=== PATIENT | male | born 1965 | race Caucasian/White ===

== ENCOUNTER → 2017-04-01 | Outpatient (CLI) | payer BC ==
[2017-04-01 13:20] LABS: BASO % 1.1 %; BASO ABS # 0.05 K/uL (0-0.2); COMPLETE YES; EOS % 4.8 %; HEMATOCRIT 42.6 % (42-52); IG% 0.2 %; LYMPH % 33.8 %; LYMPH ABS # 1.56 K/uL (1.2-3.4); MEAN CELL VOLUME 95.9 fL (80-100); MEAN CORPUSCULAR HEMOGLOBIN 33.8 pg (25-34); MEAN CORPUSCULAR HGB CONC 35.2 g/dl (32-36); MEAN PLATELET VOLUME 10.3 fL (7.4-10.4); MONO % 12.6 %; NEUT % 47.5 %; PLATELET COUNT 183 K/uL (130-400); RED BLOOD COUNT 4.44 M/uL (4.7-6.1); WHITE BLOOD COUNT 4.61 K/uL (4.8-10.8)
[2017-04-01 14:49] LABS: ALT/SGPT 39 U/L (12-78); AST/SGOT 21 U/L (15-37); BLOOD UREA NITROGEN 17 mg/dl (7-18); BUN/CREATININE RATIO 17.4 (10-20); CARBON DIOXIDE 30 mmol/L (21-32); CHLORIDE 107 mmol/L (98-107); CHOLESTEROL 126 mg/dl (0-200); GLUCOSE 116 mg/dl (70-99); POTASSIUM 3.9 mmol/L (3.5-5.1); SODIUM 140 mmol/L (136-145)
[2017-04-01 14:57] LABS: ALB/GLOB RATIO 1.3 (0.9-2); ALKALINE PHOSPHATASE 57 U/L (45-117); CHOLESTEROL/HDL RATIO 3.3; HDL CHOLESTEROL 38 mg/dl; LDL CHOLESTEROL CALCULATED 66 mg/dl; THYROID STIMULATING HORMONE 0.452 uIu/ml (0.300-4.500); TRIGLYCERIDES 110 mg/dl (0-150); VERY LOW DENSITY LIPOPROT CALC 22 mg/dl
== END | disposition home or self-care (01) ==
LOC: C.LABMFLN 07:52
PROVIDERS: ATTEND Family Medicine
DX: E78.5 Hyperlipidemia, unspecified (principal); E03.9 Hypothyroidism, unspecified

== ENCOUNTER 2024-06-01 06:20 | Observation (INO) ==
--- NOTE | 2024-05-19 09:02 | Anesthesiology Consultation ---
Date of Service May 19, 2024 Assessment & Plan (1) Encounter for pre-operative examination: - Check BSG AM DOS - Infectious disease screening: Per assessment on 05/19/24: No known recent infectious disease contacts or current infectious disease symptoms. - PCP addendum (05/13/24): "Preop testing reviewed. EKG showed NSR. Chest xray showed mildly enlarged heart with no acute abnormalities. UA showed no infection. CBC, CMP, INR, unremarkable. A1c was at 7.0. TSH WNL. Based on patients past medical history, functional capacity 4METs, and RCRI 0, patient is medically optimized for surgery. Pt will not need any additional work up." - PCP note (05/13/24): "Low risk.. Patient is cleared for scheduled surgery" Chart Review Chart Review: Acceptable Risk for Surgery and Patient NOT seen in Pre Admission Testing History Surgery Operation Date: 06/01/24 07:45 Proposed Procedures p C5-C6 Anterior Cervical Discectomy and Fusion with Spinal Cord Monitoring - William Baker, Height/Weight Height: 5 ft 9 in Weight: 97.976 kg Allergies Allergy/AdvReac Type Severity Reaction Status Date / Time No Known Allergies Allergy Verified 05/19/24 08:05 Medications Home Medications Medication Instructions Recorded Confirmed Last Taken levothyroxine 137 mcg tablet 137 mcg PO DAILY #90 tabs 09/29/23 05/19/24 Unknown simvastatin 20 mg tablet 20 mg PO DAILY #90 tabs 02/24/24 05/19/24 Unknown gabapentin 300 mg capsule 300 mg PO HS 05/10/24 05/19/24 Unknown metformin 500 mg tablet 500 mg PO DAILY 05/10/24 05/19/24 Unknown Past Medical History Medical History Diabetes History of COVID-19 (11/2022) Symptoms resolved Hyperlipidemia Hypothyroidism Thoracic compression fracture Thoracic spine MRI 01/2022: Multiple chronic mild compression fractures within the thoracic spine. No acute thoracic spine fracture. No retropulsion. Past Family History Family History Family/Other No problems noted. Father COPD (chronic obstructive pulmonary disease) Coronary heart disease Mother Hyperlipemia Rheumatoid arthritis Other Colonic polyp Colorectal cancer Past Surgical History Surgical History H/O arthroscopic knee surgery H/O colonoscopy 03/2018 Repeat 5 years H/O neck surgery H/O shoulder surgery x3 History of appendectomy History of carpal tunnel surgery bilat History of esophagogastroduodenoscopy (EGD) 11/08/2018 Social History Smoking Status: Never smoker Do You Dip or Chew Tobacco: Yes (advised) Hx Alcohol Use: No Hx Substance Use: No substance use type: does not use Lab Results Anesthesia Preop Results Results Anesthesia Widget: WBC 4.89 K/ul (4.8-10.8) 05/12/24 Hgb 14.0 g/dl (14.0-18.0) 05/12/24 Hct 39.9 % (42.0-52.0) L 05/12/24 Plt 191 K/uL (130-400) 05/12/24 Na 139 mmol/L (136-145) 05/12/24 K 3.9 mmol/L (3.5-5.1) 05/12/24 Cl 104 mmol/L (98-107) 05/12/24 CO2 29 mmol/L (21-32) 05/12/24 BUN 17 mg/dl (6-23) 05/12/24 Creat 0.96 mg/dl (0.6-1.4) 05/12/24 Glucose Level 141 mg/dl (70-99(Fasting)) H 05/12/24 PT 10.7 Seconds (9.0-12.0) 05/12/24 PTT 24 Seconds (21-31) 05/12/24 INR 1.0 (0.9-1.1) 05/12/24 TSH 0.668 uIu/ml (0.300-4.500) 05/12/24 HA1c 7.0 % (4.5-5.6) H 05/12/24 Urine Color Yellow 05/12/24 Urine Appearance Clear (Clear) 05/12/24 Urine pH 5.5 (4.5-7.5) 05/12/24 Urine Specific [place] 1.024 (1.000-1.030) 05/12/24 Urine Protein Negative (Negative) 05/12/24 Urine Glucose (UA) Negative (Negative) 05/12/24 Urine Ketones Trace (Negative) H 05/12/24 Urine Blood Negative (Negative) 05/12/24 Urine Nitrite Negative (Negative) 05/12/24 Urine Bilirubin Negative (Negative) 05/12/24 Urine Urobilinogen Negative (Negative) 05/12/24 Urine Leukocyte Esterase Negative (Negative) 05/12/24 Blood Type A Negative 05/12/24 Antibody Screen NEGATIVE 05/12/24 Testing Electrocardiogram Date: 05/12/24 NSR with sinus arrhythmia at 66bpm. LAD. Chest X-Ray Date: 05/12/24 FINDINGS: Cardiac silhouette is mildly enlarged. The lungs are clear. No pneumothorax or pleural effusion. Bones appear grossly intact. IMPRESSION: No acute process. Echocardiogram Date: 05/17/24 EF 60-65%. No RWMA. Mild cLVH. Mild MR. Normal estimated RVSP.
[2024-06-01] MEDS: GABAPENTIN 600 MG DOSE PO SCH (06:55)
[2024-06-01] MEDS: ACETAMINOPHEN 500 MG TAB PO SCH (06:55)
[2024-06-01] MEDS: CeleBREX 200 MG CAP PO SCH (06:55)
[2024-06-01] MEDS: LR 15ML/HR IV SCH (06:56)
[2024-06-01] MEDS: LR 60ML/HR IV SCH (06:56)
[2024-06-01] MEDS ORDERED: ONDANSETRON INJ 2 MG/ML 2 ML VIAL ONE (07:02)
[2024-06-01] MEDS ORDERED: MIDAZOLAM HCL 1 MG/ML 2ML VIAL ONE (07:02)
[2024-06-01] MEDS ORDERED: fentaNYL citrate PF 100 MCG/2 ML VIAL ONE ×2 (07:02→08:16)
[2024-06-01] MEDS ORDERED: PROPOFOL IV EMULSION 10 MG/ML 20 ML VIAL IV ONE (07:02)
[2024-06-01] MEDS ORDERED: LIDOCAINE 2% 2 ML VIAL/AMP(20MG/ML) INFIL ONE (07:02)
[2024-06-01] MEDS ORDERED: DEXAMETHASONE SOD INJ 4 MG/ML VIAL ONE (07:02)
[2024-06-01] MEDS ORDERED: ROCURONIUM BROMIDE 10 MG/ML 5 ML VIAL IV ONE (07:02)
[2024-06-01] MEDS ORDERED: GLYCOPYRROLATE 0.2 MG/ML VIAL ONE (07:02)
[2024-06-01] MEDS ORDERED: SUGAMMADEX SODIUM 200 MG/2 ML VIAL IV ONE (07:08)
[2024-06-01] MEDS ORDERED: ePHEDrine sulfate 50 MG/ML AMP IV PRN (07:26)
[2024-06-01] MEDS ORDERED: ATROPINE SULFATE 0.1 MG/ML 10ML SYR IV PRN (07:26)
[2024-06-01] MEDS ORDERED: ONDANSETRON INJ 2 MG/ML 2 ML VIAL IV PRN ×2 (07:26→10:42)
--- NOTE | 2024-06-01 07:40 | History & Physical Bridge Note ---
Date of Service June 01, 2024 History & Physical Bridge Note I have examined the patient, reviewed the History & Physical and in the interval since the performance of the History & Physical I have noted the following changes of clinical significance: no changes noted
--- NOTE | 2024-06-01 07:41 | History & Physical Report ---
Date of Service June 01, 2024 Assessment & Plan (1) Herniation of cervical intervertebral disc with radiculopathy: Plan: C5-C6 anterior cervical discectomy and fusion History of Present Illness Chief Complaint: Neck and arm pain Primary Care Provider: Lalitha Bojorquez DO This is a 51-year-old male who presents with chronic persistent neck and arm pain after failing course of nonoperative care is here for surgical intervention. Allergies Allergy/AdvReac Type Severity Reaction Status Date / Time No Known Allergies Allergy Verified 06/01/24 06:32 Home Medications Medication Instructions Recorded Confirmed Type levothyroxine 137 mcg tablet 137 mcg PO DAILY #90 tabs 09/29/23 06/01/24 Rx simvastatin 20 mg tablet 20 mg PO DAILY #90 tabs 02/24/24 06/01/24 Rx gabapentin 300 mg capsule 300 mg PO HS 05/10/24 06/01/24 History metformin 500 mg tablet 500 mg PO DAILY 05/10/24 06/01/24 History cholecalciferol (vitamin D3) 125 125 mcg PO DAILY 06/01/24 06/01/24 History mcg (5,000 unit) tablet (Vitamin D3) Past Med/Surg History Problem List (Updated 06/01/24 @ 07:41 by William Baker DO) Herniation of cervical intervertebral disc with radiculopathy Encounter for pre-operative examination Diabetes Thoracic radiculopathy Entered 2021 Hypothyroidism Hyperlipidemia Medical History Diabetes History of COVID-19 (11/2022) Symptoms resolved Hyperlipidemia Hypothyroidism Thoracic compression fracture Thoracic spine MRI 01/2022: Multiple chronic mild compression fractures within the thoracic spine. No acute thoracic spine fracture. No retropulsion. Surgical History H/O arthroscopic knee surgery H/O colonoscopy 03/2018 Repeat 5 years H/O neck surgery H/O shoulder surgery x3 History of appendectomy History of carpal tunnel surgery bilat History of esophagogastroduodenoscopy (EGD) 11/08/2018 Family History Family/Other No problems noted. Father COPD (chronic obstructive pulmonary disease) Coronary heart disease Mother Hyperlipemia Rheumatoid arthritis Other Colonic polyp Colorectal cancer Social History Smoking Status: Never smoker Tobacco Type: Smokeless Tobacco (Dip or Chew) Second Hand Exposure: No; Do You Dip or Chew Tobacco: Yes (advised); Tobacco Cessation Education Requested by Patient: No Hx Alcohol Use: No Hx Substance Use: No Preferred Language: Mongolian Communication Ability: Effective Visual Impairment: No Limitations Hearing Ability: Normal Kennel Helper Required: No Beliefs That Will Affect Care: None marital status: Current Living Situation: Spouse current occupational status: employed Other Information That Helps Us Care for You: No Feels Safe at Home: Yes Safety Concerns: Feels Safe At This Time Assistive Devices: Glasses Physical Exam Physical Exam: Patient is alert and oriented heart regular in rhythm Lungs clear Results & Data Results & Data Vital Signs (Past 12 Hours) Vital Signs Temp Pulse Resp BP Pulse Ox O2 Del Method 06/01/24 06:31 36.8 C 88 99 H 166/108 H 99 Room Air
[2024-06-01] MEDS: ceFAZolin 2000MG 2,000 MG/15 ML SYR IV SCH ×2 (07:48→14:14)
[2024-06-01] MEDS: FLOSEAL HEMOSTATIC MATRIX 10ML TOP ONE (08:44)
[2024-06-01] MEDS: ceFAZolin 330 MG/ML 1 GM VIAL ONE (08:47)
--- NOTE | 2024-06-01 08:57 | Operative Report ---
Post Operative Report Pre & Post Diagnosis Operation Date: 06/01/24 07:45 Pre-Op Diagnosis: Herniation of cervical intervertebral disc with radiculopathy Post-Op Diagnosis: Herniation of cervical intervertebral disc with radiculopathy I identified the patient and participated in the time-out.: Yes Procedure Operation Date: 06/01/24 07:45 Actual Procedures #1 anterior cervical discectomy with bilateral foraminotomies C5-C6. #2 anterior cervical arthrodesis C5-C6. #3 placement of Spira 8 mm cage filled with os design bone graft C5-C6. #4 application of K2 M plate and screws across the 5 C6. Surgeon William Baker, DO Armed [employer] Professional Roya Che Estimated Blood Loss 10 Findings Consistent with Post-Op Diagnosis Specimens None Indications This is a 51-year-old male that presents with above-mentioned diagnosis and failed course of nonoperative care is here for surgical intervention. Description of Procedure Patient was met with identified informed consent obtained. Patient was then taken to the operative suite underwent patient placed in a supine position on the [place] table with his head in the [employer] head inspector and adjuster. All bony promises well-padded eyes inspected to ensure no external pressure placed upon the. This point the anterior cervical spine was prepped and draped in a sterile fashion. The assistance of fluoroscopy identified the see 5 C6 disc space and a transverse incision was placed along the right anterior aspect of the cervical spine overlying this region. Blunt dissection with the assistance of bipolar electrocautery is then formed down to and exposing the anterior cervical spine at C5-C6. Self-retaining retractor was placed. A complete discectomy of C5-C6 was then performed up to the uncovertebral joints bilaterally. Harrison distracting pins utilized to assist in visualization. I removed all posterior annular fibers longitudinally with bilateral foraminotomies performed. Endplates burred to subcortical and bone and 8 mm spiral cage filled with os design bone graft tapped in position. Distracting apparatus was removed and a K2 M plate and screws applied with the assistance of fluoroscopy. The incision was then copiously irrigated explored to ensure no damage to surrounding structures or remaining bleeding. 10 round KARLY drain inserted. The incision was then closed with 2 Vicryl in the fascia and 4 Monocryl for final skin closure. Steri-Strips sterile dressing placed. Patient waken taken to PACU in stable condition. Please note spinal cord monitoring was utilized at the procedure no changes noted. Roya Che was present at the entire surgery involved the patient position complex portion of the surgery and final skin closure. I attest to the content of the Intraoperative Record and any orders documented therein. Any exceptions are noted below.
[2024-06-01] MEDS: HYDROmorphone INJ 2 MG/ML SYR/VIAL IV PRN (09:45)
--- NOTE | 2024-06-01 10:34 | Fluoroscopy Report ---
INTRAOPERATIVE RADIOGRAPHS CLINICAL HISTORY: Cervical spinal fusion. Fluoro time: 9 seconds Ka,r: 0.95 mGy FINDINGS: 2 spot fluoroscopic views of the cervical spine are presented. There has been discectomy at C5-C6 with anterior fusion at this level. The orthopedic hardware appears intact. An endotracheal tu be is in place. IMPRESSION: Intraoperative images from cervical spinal fusion surgery as above. Electronically signed by: Asad Cuba M.D. 06/01/2024 10:33 AM
[2024-06-01] MEDS ORDERED: METOCLOPRAMIDE HCL INJ 5 MG/ML 2 ML VIAL IV PRN (10:42)
[2024-06-01] MEDS ORDERED: LORazepam 0.5 MG in SYRINGE 0.25 ML IV PRN (10:42)
[2024-06-01] MEDS ORDERED: ONDANSETRON 4 MG OD TAB PO PRN (10:42)
[2024-06-01] MEDS ORDERED: diphenhydrAMINE Capsule 25 MG CAP PO PRN (10:42)
[2024-06-01] MEDS ORDERED: hydrOXYzine HCl 25 MG TAB PO PRN (10:42)
[2024-06-01] MEDS ORDERED: SOD PHOSPHATE/SOD BIPHOSPHATE ENEMA 132 ML BTL PR PRN (10:42)
[2024-06-01] MEDS ORDERED: DO NOT ADMINISTER PNEUMOCOCCAL VACCINE PRN (10:42)
[2024-06-01] MEDS ORDERED: dexAMETHasone 8 MG in SYRINGE 0 ML IV PRN (10:42)
[2024-06-01] MEDS ORDERED: NALOXONE HCL 0.4 MG/1 ML VIAL/CARP IV PRN (10:42)
[2024-06-01] MEDS ORDERED: PHARMACY GLYCEMIC MGMT CONSULT PRN (10:42)
[2024-06-01] MEDS ORDERED: RACEPINEPHRINE 2.25% NEBU SOLN 0.5 ML VIAL INH PRN (10:42)
[2024-06-01] MEDS ORDERED: DO NOT ADMINISTER FLU VACCINE PRN (10:42)
[2024-06-01] MEDS ORDERED: MAGNESIUM HYDROXIDE SUSP 30 ML UDC PO PRN (10:42)
[2024-06-01] MEDS ORDERED: ALUMINUM/MAGNESIUM SUSP 30 ML UDC PO PRN (10:42)
[2024-06-01] MEDS ORDERED: ACETAMINOPHEN 500 MG TAB PO PRN (10:42)
[2024-06-01] MEDS ORDERED: LORazepam 0.5 MG TAB PO PRN (10:42)
[2024-06-01] MEDS ORDERED: FAMOTIDINE 20 MG TAB PO PRN (10:42)
[2024-06-01] MEDS ORDERED: HYDROmorphone INJ 0.5 MG/0.5 ML SYR IV PRN (10:42)
[2024-06-01] MEDS ORDERED: PROMETHAZINE HCL 12.5 MG in SODIUM CHLORIDE 0.9% 50 ML IV PRN (10:42)
[2024-06-01] MEDS ORDERED: bisacodyL 10 MG SUPP PR PRN (10:42)
--- NOTE | 2024-06-01 10:59 | Anesthesiology Progress Note ---
Date of Service June 01, 2024 Anesthesia Post Procedure Vital Signs Vital Signs: Temp Pulse Pulse Resp BP Pulse Ox O2 Del Method 06/01/24 10:35 36.5 C 88 16 129/82 96 Nasal Cannula 06/01/24 10:10 82 12 135/76 96 Nasal Cannula 06/01/24 10:00 36.3 C L 84 12 133/82 94 Room Air 06/01/24 09:50 88 16 122/81 96 Room Air 06/01/24 09:40 89 14 124/82 95 Room Air 06/01/24 09:30 82 14 123/83 94 Room Air 06/01/24 09:20 84 12 130/78 99 Oxymask 06/01/24 09:10 83 12 124/76 96 Oxymask 06/01/24 09:02 36 C L 86 12 98/64 L 94 Oxymask 06/01/24 06:31 36.8 C 88 99 H 166/108 H 99 Room Air O2 Flow Rate 06/01/24 10:35 2 06/01/24 10:10 2 06/01/24 10:00 06/01/24 09:50 06/01/24 09:40 06/01/24 09:30 06/01/24 09:20 5 06/01/24 09:10 10 06/01/24 09:02 10 06/01/24 06:31 Pain Intensity Left Arm: Pain Intensity: 3 Anterior Neck: Pain Intensity: 4 Transfer of Care Handoff Completed per policy Notes Mental Status: alert / awake / arousable and participated in evaluation Nausea / Vomiting: adequately controlled Pain: adequately controlled Airway Patency, RR, SpO2: stable & adequate BP & HR: stable & adequate Hydration State: stable & adequate Anesthetic Complications: no major complications apparent and Pt Satisfied with anesthetic care
--- NOTE | 2024-06-01 11:19 | Pharmacy Report ---
Pharmacy Glycemic Short Note 2 - Date of Service June 01, 2024 - Glycemic Short BSG Results (Last 24 hours): 06/01/24 06/01/24 06:32 09:05 POC Glucose 137 H 140 H OUTPATIENT ANTIDIABETIC REGIMEN: * Metformin 500 mg po daily * HbA1c 7.0% on 05/12/24 ASSESSMENT: * 59 yo M POD #[address] Baker. Dexamethasone ordered today and ongoing. T2DM/clear liq ordered. * Will give one-time dose of Lantus ~0.2 units/kg * Will initiate weight-based estimate for Novolog at close to the severe stress estimate 2nd steroids PLAN FOR INPATIENT GLYCEMIC CONTROL: * Hold outpatient oral diabetes medications * Basal insulin * Lantus 20 units SQ x1 now * Bolus insulin * NovoLog per scale ACHS or Q6hrs while NPO * Goal Range: Low 110 mg/dL - High 140 mg/dL * Correction Factor: 20 mg/dL/unit * Nutritional / Prandial insulin per carb ratio of 1 unit per 6 grams CHO consumed
[2024-06-01] MEDS: SODIUM CHLORIDE 0.9% 1,000 ML IV SCH (11:22)
[2024-06-01] MEDS ORDERED: LANTUS PER UNIT CHARGE SC ONE (11:30)
[2024-06-01] MEDS: dexAMETHasone 6 MG in SYRINGE 0 ML IV SCH (12:23)
[2024-06-01] MEDS: CHOLECALCIFEROL 125 MCG (5,000 UNITS) TAB PO SCH (12:23)
[2024-06-01] MEDS: INSULIN ASPART PER UNIT CHARGE SC SCH (12:27)
[2024-06-01] MEDS: LANTUS PER UNIT CHARGE SC ONE (12:28)
[2024-06-01] MEDS: oxyCODONE HCL IR 5 MG TAB (IMMEDIATE RELEASE) PO PRN (12:33)
[2024-06-01] MEDS: COUGH DROP (SUGAR FREE) LOZ 24 LOZ/1 BOX BUCCAL ONE (14:12)
[2024-06-01] MEDS: ACETAMINOPHEN 1,000 MG/100 ML VIAL IV PRN (20:00)
[2024-06-01] MEDS: DOCUSATE SODIUM/SENNA 50/8.6MG TAB PO SCH (20:01)
[2024-06-01] MEDS: SIMVASTATIN 20 MG TAB PO SCH (20:01)
[2024-06-01] MEDS: GABAPENTIN 300 MG CAP PO SCH (20:01)
[2024-06-01] MEDS: traMADol HCL 50 MG TABLET PO PRN (21:09)
[2024-06-01] MEDS: HYDROmorphone INJ 1 MG/ML SYRINGE IV PRN (22:23)
[2024-06-02] MEDS: INSULIN ASPART PER UNIT CHARGE SC ONE (01:48)
[2024-06-02] MEDS: LEVOTHYROXINE SODIUM 137 MCG TABLET PO SCH (05:33)
[2024-06-02] MEDS: POLYETHYLENE (MIRALAX) 17 GM PACK PO SCH (05:33)
[2024-06-02 07:10] LABS: BUN Creatinine Ratio 14.1 (10-20); Calcium 9.4 mg/dl (8.6-10.3); Creatinine Clr Calc Pharmacy 109.4 ml/min; Est GFR (African American) 111.3 ml/min; Potassium 4.1 mmol/L (3.5-5.1)
[2024-06-02] MEDS: LANTUS PER UNIT CHARGE SC SCH (08:41)
--- NOTE | 2024-06-02 10:53 | Pharmacy Report ---
Pharmacy Glycemic Short Note 2 - Date of Service June 02, 2024 - Glycemic Short BSG Results (Last 24 hours): 06/01/24 06/01/24 06/01/24 11:43 16:35 20:06 Glucose POC Glucose 206 H 175 H 141 H 06/02/24 06/02/24 06/02/24 01:34 06:26 07:38 Glucose 158 H POC Glucose 125 H 154 H OUTPATIENT ANTIDIABETIC REGIMEN: * Metformin 500 mg po daily * HbA1c 7.0% on 05/12/24 ASSESSMENT: 06/02 * POD 1. Dexamethasone continues. T2DM ordered. * AM fasting BSG good. Will now split Lantus BID after loading dose yesterday and scale via BSG * Post-prandial BSG's reasonable. No change to Novolog. 06/01 * 59 yo M POD #[address] Baker. Dexamethasone ordered today and ongoing. T2DM/clear liq ordered. * Will give one-time dose of Lantus ~0.2 units/kg * Will initiate weight-based estimate for Novolog at close to the severe stress estimate 2nd steroids PLAN FOR INPATIENT GLYCEMIC CONTROL: * Hold outpatient oral diabetes medications * Basal insulin * Lantus 5-15 units SQ BID based on BSG * Bolus insulin * NovoLog per scale ACHS or Q6hrs while NPO * Goal Range: Low 110 mg/dL - High 140 mg/dL * Correction Factor: 20 mg/dL/unit * Nutritional / Prandial insulin per carb ratio of 1 unit per 6 grams CHO consumed
--- NOTE | 2024-06-02 10:59 | Discharge Summary ---
Date of Service June 02, 2024 Admission HPI Per Admitting Provider This is a 51-year-old male who presents with chronic persistent neck and arm pain after failing course of nonoperative care is here for surgical intervention. Principal Diagnosis Cervical disc herniation with radiculopathy Discharge Data Allergies Allergy/AdvReac Type Severity Reaction Status Date / Time No Known Allergies Allergy Verified 06/01/24 06:32 Procedures Performed Operation Date: 06/01/24 07:45 Actual Procedures p C5-C6 Anterior Cervical Discectomy and Fusion, Spinal Cord Monitoring(Not Applicable) - William Baker DO Ordered Studies 06/01/24 [place] cervical 2-3V Routine Hospital Course (1) Herniation of cervical intervertebral disc with radiculopathy: Patient 1 anterior cervical discectomy fusion trial as well as negative orthopedic for postoperative or postoperatively he was swallowing well. Arm symptoms improved. Pain well-controlled. Excellent strength testing. Subsidy discharged home. Discharge orders instructions from the chart for further view. Total Time Total Time Spent Total Time Spent (In Minutes): 20 minutes Discharge Plan Discharge Items Patient Disposition: Home - Self-Care Reason For Visit: Herniation of Cervical Intervertebral Disc with Ra Discharge Diagnosis: Cervical disc herniation with radiculopathy Activity: As commented below Non-emergency contact: Primary Care Provider Call non-emergency contact if: you have any medication questions Follow-up/Referrals: Lalitha Bojorquez DO [Primary Care Provider] - Diet: Regular Addtl Attending Provider Instructions: ACTIVITY RECOMMENDATIONS: SELF CARE INSTRUCTIONS AFTER CERVICAL FUSIONS 1. No smoking. Smoking drastically decreases the chance of a solid fusion. 2. No bending, lifting more than 5 pounds, or twisting (roll like a log when turning in bed). 3. You may shower 3 days after surgery. Thoroughly dry wound. Do not soak in the tub. 4. Cervical collar: Must be worn at all times including sleeping. You may remove the brace only to bath, eat and if you are sitting in a recliner. 5. Please walk as much as you can for exercise. Gradually increase the distance that you walk as your endurance increases. SPECIAL CARE INSTRUCTIONS: VERY IMPORTANT TO READ AND REVIEW A. Do not take any anti-inflammatory medications (i.e. Indocin, Advil, Aspirin, Naprosyn, Aleve, Motrin, etc.) as these may inhibit the chance of a solid fusion. Tylenol is okay to take. B. Your surgical incision has been closed with a cosmetic suture under the skin that will dissolve in about 6 weeks. In 14 days, you can use a pair of clean scissors and cut the suture that is left outside of the skin at the ends of your incision. C. Complications are uncommon, but please contact us if you have any signs or symptoms of: 1. wound infection (fever higher than 102.5 degrees F, redness, separation of wound, drainage, or increasing pain from the incision) 2. blood clots in legs (pain, swelling, redness and warmth in legs) 3. urinary tract infection (fever higher than 102.5 degrees, burning upon urination or increased frequency of urination) 4. nerve problems (inability to walk on your toes or heels, numbness, loss of bowel or bladder control) 5. any other symptoms that concern you. D. Please call the office at if you have any concerns or questions about your operation or recovery. MANAGING PAIN AFTER SPINAL SURGERY 1. Narcotic medication is intended for short-term use and will be provided for surgical pain. Surgical pain usually lasts for a period of 4-6 weeks. Narcotic medication includes Percocet, Vicodin, Darvocet, Tylenol #3 or Lortab. 2. Longer-term pain is more appropriately treated with non-narcotic medication such as Tylenol ES. 3. Muscle spasm is not appropriately treated with narcotics. Muscle relaxers such as Soma, Flexeril or Skelaxin can be used along with Tylenol ES. 4. Remember that we all live with some "aches and pains". This is not unusual or uncommon after an injury or as we get older. 5. We will provide appropriate medication within the normal guidelines of their prescribed use. We will also be very cautious and aware of potential abuse and extended duration of patients' medication needs. 6. Please allow 2-3 days to process refills. Prescriptions will not be mailed but must be picked up at the office. FOLLOW UP VISIT: Keep your scheduled follow-up appointment. Any questions, please call the office at . Pending Studies at Discharge: No Stand-Alone Forms: My [employer], Smoking Cessation Medications and DC Order Prescriptions: New tramadol 50 mg tablet 50 mg PO Q6H PRN (Reason: pain, moderate) Qty: 20 0RF oxycodone 5 mg tablet 5 mg PO Q6H PRN (Reason: pain) Qty: 20 0RF gabapentin 300 mg Capsule 300 mg PO HS Qty: 90 0RF Continued levothyroxine 137 mcg tablet 137 mcg PO DAILY Qty: 90 3RF simvastatin 20 mg tablet 20 mg PO DAILY Qty: 90 1RF metformin 500 mg tablet 500 mg PO DAILY gabapentin 300 mg capsule 300 mg PO HS cholecalciferol (vitamin D3) [Vitamin D3] 125 mcg (5,000 unit) Tablet 125 mcg PO DAILY Rx Instructions: pt taking 6,000 units Discharge Orders: Discharge Order (Routine); Ordered 06/02/24 Ordered By: William Baker Admission Data Admit Date/Time: 06/01/24 09:00 Attending Provider: William Baker Admit Provider: William Baker Primary Care Provider: Lalitha Bojorquez
== END 2024-06-02 12:40 | disposition home or self-care (01) ==
LOC: 3E 06:20 → ASU 06:20